=== PATIENT | female | born 1960 | race Caucasian/White ===

== ENCOUNTER → 2020-11-12 | Outpatient (CLI) | payer MEDICARE, OTHER | LOC: EXRD 15:20 | DX: M25.552 Pain in left hip (principal); M54.9 Dorsalgia, unspecified; G89.29 Other chronic pain; M16.12 Unilateral primary osteoarthritis, left hip; M40.56 Lordosis, unspecified, lumbar region; M47.816 Spondylosis without myelopathy or radiculopathy, lumbar region | CPT/HCPCS: 72100; 73502 ==